=== PATIENT | female | born 1950 ===

== ENCOUNTER 2021-09-17 09:18 | Outpatient (CLI) | payer OTHER | END 2021-09-17 11:41 | disposition home or self-care (01) | LOC: SONOGRAMA 09:18 | PROVIDERS: ATTEND Pathology Anatomic Pathology & Clinical Pathology | DX: E04.2 Nontoxic multinodular goiter (principal) ==

== ENCOUNTER 2023-12-31 11:16 | Outpatient (CLI) | payer OTHER | END 2023-12-31 11:23 | disposition home or self-care (01) | LOC: SONOGRAMA 11:16 | PROVIDERS: ATTEND Internal Medicine Cardiovascular Disease | DX: M25.512 Pain in left shoulder (principal) ==